=== PATIENT | male | born 1940 | race Caucasian/White ===

== ENCOUNTER 2022-03-15 07:53 | Outpatient (CLI) | payer MEDICARE, SELFPAY ==
[2022-03-15 09:48] LABS: Albumin* 4.2 g/dL (3.3-5.0); Chloride* 106 mmol/L (96-114); Sodium* 141 mmol/L (135-149)
[2022-03-15 09:49] LABS: Potassium* 4.8 mmol/L (3.6-5.1)
[2022-03-15 09:51] LABS: Alkaline Phosphatase* 40 U/L (40-150); Aspartate Amino Transferase* 32 U/L (12-35); Bilirubin Total* 1.1 mg/dL (0.1-1.5); Blood Urea Nitrogen* 27 mg/dL (7-30); Carbon Dioxide* 32 mmol/L (20-32); Cholesterol* 199 mg/dL (90-199); Creatinine* 1.3 mg/dL (0.5-1.5); Estimated Glomerular Filt Rate 56 ml/min; Glucose* 187 mg/dL (60-115); Total Protein* 6.8 g/dL (6.0-8.3); Triglycerides* 130 mg/dL (40-149)
[2022-03-15 09:52] LABS: Alanine Aminotransferase* 29 U/L (4-50); Calcium* 9.6 mg/dL (8.4-10.6); HDL Cholesterol* 60 mg/dL (>=40); LDL Cholesterol Calculated 113 mg/dL (<100)
[2022-03-15 10:17] LABS: PSA Screen* 3.82 ng/mL (0.10-4.00)
== END 2022-03-15 07:54 | disposition home or self-care (01) ==
PROVIDERS: PCP Internal Medicine; Visit Provider Internal Medicine
DX: E78.5 Hyperlipidemia, unspecified (principal); E11.9 Type 2 diabetes mellitus without complications; E66.9 Obesity, unspecified; I48.91 Unspecified atrial fibrillation; Z12.5 Encounter for screening for malignant neoplasm of prostate
CPT/HCPCS: 80053; 80061; 84153

== ENCOUNTER 2023-03-03 10:14 | Outpatient (CLI) | payer MEDICARE, SELFPAY | END 2023-03-03 10:15 | disposition home or self-care (01) | PROVIDERS: PCP Internal Medicine; Visit Provider Family Medicine | DX: E78.2 Mixed hyperlipidemia (principal); Z12.5 Encounter for screening for malignant neoplasm of prostate; Z13.29 Encounter for screening for other suspected endocrine disorder; Z13.228 Encounter for screening for other metabolic disorders | CPT/HCPCS: 80053; 80061; 82043; 82570; 84443; 85025; G0103 ==

== ENCOUNTER 2023-10-25 11:48 | Outpatient (CLI) | payer MEDICARE, SELFPAY | END 2023-10-25 11:49 | disposition home or self-care (01) | PROVIDERS: PCP Internal Medicine; Visit Provider Internal Medicine | DX: E78.2 Mixed hyperlipidemia (principal); E11.9 Type 2 diabetes mellitus without complications; I25.10 Atherosclerotic heart disease of native coronary artery without angina pectoris; R97.20 Elevated prostate specific antigen [PSA] | CPT/HCPCS: 80053; 80061; G0103 ==

== ENCOUNTER 2024-03-22 09:15 | Outpatient (CLI) | payer MEDICARE, SELFPAY | END 2024-03-22 09:16 | disposition home or self-care (01) | PROVIDERS: PCP Internal Medicine; Visit Provider Internal Medicine | DX: E11.9 Type 2 diabetes mellitus without complications (principal); E78.2 Mixed hyperlipidemia; R97.20 Elevated prostate specific antigen [PSA]; Z12.5 Encounter for screening for malignant neoplasm of prostate; Z13.9 Encounter for screening, unspecified | CPT/HCPCS: 80053; 80061; G0103 ==

== ENCOUNTER 2024-11-05 10:42 | Outpatient (CLI) | payer MEDICARE, SELFPAY | END 2024-11-05 10:43 | disposition home or self-care (01) | PROVIDERS: PCP Internal Medicine; Visit Provider Family Medicine | DX: E11.9 Type 2 diabetes mellitus without complications (principal); E78.2 Mixed hyperlipidemia; C61 Malignant neoplasm of prostate | CPT/HCPCS: 80048; 82043; 82570; 84153 ==